=== PATIENT | male | born 1990 | race Caucasian/White ===

== ENCOUNTER 2017-09-15 17:05 | Emergency (ER) | payer BC ==
[2017-09-15 17:17] VITALS: BP 124/81
[2017-09-15] MEDS ORDERED: Ketorolac INJ* 60 MG/2 ML VIAL IM ONE (17:26)
--- NOTE | 2017-09-15 17:26 | UC ---
Back Pain HPI - HPI Summary HPI Summary: 26 yo male presents with low back pain since yesterday. 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 Later that night took ibuprofen with mild relief. This morning took tylenol. Still painful and feels like it is getting more stiff. Denies radiation, numbness, tingling, saddle anesthesia, or loss of bowel/bladder control. - History of Current Complaint Chief Complaint: UCBackPain Stated Complaint: BACK PAIN Time Seen by Provider: 09/15/17 17:18 Hx Obtained From: Patient Onset/Duration: Sudden Onset Timing: Constant Severity Initially: Moderate Severity Currently: Moderate Pain Intensity: 5 Pain Scale Used: 0-10 Numeric - Allergies/Home Medications Allergies/Adverse Reactions: Allergies Allergy/AdvReac Type Severity Reaction Status Date / Time No Known Allergies Allergy Verified 09/15/17 17:17 Home Medications: Home Medications Acetaminophen TAB* [Tylenol TAB*] 1,000 mg PO Q6HR 09/15/17 [History Confirmed 09/15/17] PMH/Surg Hx/FS Hx/Imm Hx - Additional Past Medical History Additional PMH: None Previously Healthy: Yes - Surgical History Surgical History: None - Family History Known Family History: Positive: None - Social History Occupation: Student Lives: With Family Alcohol Use: Occasionally Substance Use Type: None Smoking Status (MU): Never Smoked Tobacco Review of Systems Constitutional: Negative Skin: Negative Respiratory: Negative Cardiovascular: Negative Gastrointestinal: Negative Genitourinary: Negative Neurovascular: Negative Musculoskeletal: Other: - Low back pain Neurological: Negative Psychological: Negative All Other Systems Reviewed And Are Negative: Yes Physical Exam - Summary Physical Exam Summary: GENERAL: NAD. WDWN. No pain distress. SKIN: No rashes, sores, lesions, or open wounds. NECK: Supple. FROM. Nontender. No lymphadenopathy. CHEST: CTAB. No r/r/w. No accessory muscle use. Breathing comfortably and in no distress. CV: RRR. Without m/r/g. Pulses intact. Brisk cap refill. MSK: TTP over lumbar paraspinal muscles. Pain with flexion and extension of spine. Positive SLR b/l. Strength 5/5 B/L LEs including dorsiflexion and plantar flexion. FROM B/L LEs. No edema. NEURO: Alert. CN II-XII grossly intact. Sensations intact B/L LEs L3-S1. PSYCH: Age appropriate behavior. Triage Information Reviewed: Yes Vital Signs: Initial Vital Signs Temp 98.4 F 09/15/17 17:07 Pulse 63 09/15/17 17:07 Resp 16 09/15/17 17:07 BP 124/81 09/15/17 17:07 Pulse Ox 99 09/15/17 17:07 Vital Signs Reviewed: Yes Back Pain Course/Dx - Course Course Of Treatment: Suspect muscle strain/spasm. 60mg toradol IM given in clinic. Rx for flexeril. Exercises provided. F/u prn - Differential Dx/Diagnosis Provider Diagnoses: Low back muscle strain Discharge - Sign-Out/Discharge Documenting (check all that apply): Patient Departure - Discharge Plan Condition: Stable Disposition: HOME Prescriptions: Cyclobenzaprine TAB* [Flexeril 10 MG TAB*] 10 mg PO BID PRN #14 tab PRN Reason: Pain Patient Education Materials: Muscle Strain (DC), Lower Back Exercises (ED) Referrals: No Primary Care Phys,NOPCP [Primary Care Provider] - Additional Instructions: If you develop a fever, shortness of breath, chest pain, new or worsening symptoms - please call your PCP or go to the ED. - Billing Disposition and Condition Condition: STABLE Disposition: Home
== END 2017-09-15 17:45 | disposition home or self-care (01) ==
LOC: UCEAST 17:05
DX: S39.012A Strain of muscle, fascia and tendon of lower back, initial encounter (principal); X50.9XXA Other and unspecified overexertion or strenuous movements or postures, initial encounter; Y93.89 Activity, other specified; Y92.9 Unspecified place or not applicable
CPT/HCPCS: 96372; 99202; G0463; J1885

== ENCOUNTER 2018-03-15 14:04 | Emergency (ER) | payer BC ==
[2018-03-15 14:30] VITALS: BP 136/77
--- NOTE | 2018-03-15 14:47 | UC ---
Throat Pain/Nasal Bran HPI - HPI Summary HPI Summary: Pt presents to stating Thursday he developed some sinus congestion sore throat. Patient states Thursday, low-grade fever to 99.9. Patient states he took Sudafed and Tylenol and felt better. Patient states Thursday he had temperature 101 and again took Sudafed and Tylenol. Better. Patient states today he feels good. Patient had some mild sinus congestion that improved. Patient denies vomiting. Patient states he little nauseated he thought was related to the Sudafed but this resolved. Patient states he thinks is getting better but here because his is in her second trimester and her OB wanted him to get checked. does not have symptoms. Patient did get flu vaccine this year. Patient is not immunocompromise. Patient's medications reviewed this visit. - History of Current Complaint Chief Complaint: UCGeneralIllness Stated Complaint: COUGH, AND SORE THROAT Time Seen by Provider: 03/15/18 14:35 Hx Obtained From: Patient Onset/Duration: Gradual Onset Severity: Mild Pain Intensity: 2 Pain Scale Used: 0-10 Numeric - Allergies/Home Medications Allergies/Adverse Reactions: Allergies Allergy/AdvReac Type Severity Reaction Status Date / Time No Known Allergies Allergy Verified 03/15/18 14:30 Home Medications: Home Medications NK [No Home Medications Reported] 03/15/18 [History Confirmed 03/15/18] PMH/Surg Hx/FS Hx/Imm Hx Previously Healthy: Yes - Surgical History Surgical History: None Surgery Procedure, Year, and Place: denies - Family History Known Family History: Positive: Non-Contributory - Social History 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 EOM intact and full ENT: Hearing grossly normal TM x 2 clear, turbinates inflammed, + PND, mmoist , uvula midline, + exudate, no erythema Neck: Positive: Supple Respiratory: Positive: No respiratory distress, No accessory muscle use + CTA throughout no w/r Cardiovascular: RRR nl s1, s2 no m/r CBT <2 sec abd soft + BS nt/nd no guarding, no distension Musculoskeletal Exam: ENRIQUEZ x 4 without difficulty Strength Intact, ROM Intact Neurological: Positive: Alert, + sensation throughout Psychological: Positive: Normal Response To Family Skin: Positive: no rash, no ecchymosis Triage Information Reviewed: Yes Vital Signs: Initial Vital Signs Temp 98.6 F 03/15/18 14:26 Pulse 71 03/15/18 14:26 Resp 18 03/15/18 14:26 BP 136/77 03/15/18 14:26 Pulse Ox 100 03/15/18 14:26 Throat Pain/Nasal Course/Dx - Course Course Of Treatment: Patient presents to urgent care requesting a test for strep throat as well as influenza. Patient states he had a sore throat congestion on Thursday. Patient states he's been having low-grade fevers for which was taken Tylenol. Patient states he actually feels like he getting better. Patient's is 6 months and OB requested that he get checked for influenza. Patient states he has mild nasal congestion but otherwise no complaints. Eating and drinking well. On exam vital signs are stable. Patient does have some inflamed turbinates with postnasal drip otherwise well-appearing. Discussed with patient secretion precaution, humidified air. Recommend steroid nasal spray the patient declined at this time. Motrin/Tylenol return precautions. - Differential Dx/Diagnosis Provider Diagnosis: URI (upper respiratory infection) Discharge - Sign-Out/Discharge Documenting (check all that apply): Patient Departure All imaging exams completed and their final reports reviewed: No Studies - Discharge Plan Condition: Stable Disposition: HOME Patient Education Materials: Upper Respiratory Infection (ED) Referrals: No Primary Care Phys,NOPCP [Primary Care Provider] - Additional Instructions: As discussed, your rapid influenza A and B were negative as was your rapid strep test. Your symptoms are likely caused by a virus other than influenza A + B - Stay well hydrated. Drink plenty of non-alcoholic, non-caffinated beverages. - Alternate ibuprofen (Advil, Motrin) 600mg and Tylenol 1000mg every 3 hours for pain or fever. Take with food. Do NOT take for more than 4-5 days. - These infections are spread by secretions - do NOT share eating or drinking utensils - clean items you share with other people such as cell phones, computer mouse, TV remote, computer tablets,etc. Once you start to feel better, change your toothbrush and your pillowcase. - get plenty of restful sleep - humidify the air in the room where you sleep - boil water, run a hot steam shower, vaporizer, cups of water by heat register - okay to take over the counter decongestant and cough medication - consider taking a nasal steroid spray if you have ongoing congestion - contact your doctor or return with questions or concerns - Billing Disposition and Condition Condition: STABLE Disposition: Home
== END 2018-03-15 15:10 | disposition home or self-care (01) ==
LOC: UCEAST 14:04
DX: J06.9 Acute upper respiratory infection, unspecified (principal)
CPT/HCPCS: 87651; 99211; G0463

== ENCOUNTER 2018-12-29 19:37 | Emergency (ER) | payer BC, OTHER ==
[2018-12-29 20:02] VITALS: BP 124/78
--- NOTE | 2018-12-29 20:26 | UC ---
Skin Complaint HPI - HPI Summary HPI Summary: 28-year-old male comes in with a chief complaint of a lump on his neck. It's left sided posterior. It's in his skin. He thinks is a sebaceous cyst that is infected. Is of urinary student. It's red tender to palpation. There is pressure. He squeezed earlier and expressed sebum. That's when it started getting red and angry. No history of MRSA. - History of Current Complaint Chief Complaint: UCSkin Time Seen by Provider: 12/29/18 20:19 Stated Complaint: LUMP ON NECK Pain Intensity: 3 - Allergy/Home Medications Allergies/Adverse Reactions: Allergies Allergy/AdvReac Type Severity Reaction Status Date / Time No Known Allergies Allergy Verified 12/29/18 19:58 PMH/Surg Hx/FS Hx/Imm Hx Previously Healthy: Yes - Surgical History Surgical History: None Surgery Procedure, Year, and Place: denies - Family History Known Family History: Positive: None, Non-Contributory - Social History Alcohol Use: Occasionally Substance Use Type: None Smoking Status (MU): Never Smoked Tobacco Review of Systems All Other Systems Reviewed And Are Negative: Yes Constitutional: Positive: Negative Skin: Positive: Other - see hpi Eyes: Positive: Negative ENT: Positive: Negative Respiratory: Positive: Negative Cardiovascular: Positive: Negative Gastrointestinal: Positive: Negative Motor: Positive: Negative Neurovascular: Positive: Negative Musculoskeletal: Positive: Negative Neurological: Positive: Negative Psychological: Positive: Negative Is Patient Immunocompromised?: No Physical Exam Triage Information Reviewed: Yes Appearance: Well-Appearing, No Pain Distress, Well-Nourished Vital Signs: Initial Vital Signs Temp 98.7 F 12/29/18 19:58 Pulse 62 12/29/18 19:58 Resp 18 12/29/18 19:58 BP 124/78 12/29/18 19:58 Pulse Ox 99 12/29/18 19:58 Vital Signs Reviewed: Yes Eye Exam: Normal Eyes: Positive: Conjunctiva Clear Neck: Positive: Other: - Swelling in the skin the left posterior lower neck that 's erythematous and tender to palpation. There is some fluctuance. Respiratory: Positive: No respiratory distress Musculoskeletal: Positive: Strength Intact Neurological: Positive: Alert Psychological: Positive: Age Appropriate Behavior Skin: Positive: Other - Swelling in the skin the left posterior lower neck that' s erythematous and tender to palpation. There is some fluctuance. Course/Dx - Course Course Of Treatment: This appears to be an infected sebaceous cyst. I discussed I&D versus antibiotic treatment. Patient prefers to have antibiotic treatment and follow- up with dermatology and declines I&D at this time. Is to follow-up with dermatology get reevaluated sooner if worse or any questions or concerns. - Diagnoses Provider Diagnosis: Infected sebaceous cyst of skin Discharge ED - Sign-Out/Discharge Documenting (check all that apply): Patient Departure All imaging exams completed and their final reports reviewed: No Studies - Discharge Plan Condition: Stable Disposition: HOME Prescriptions: Cephalexin CAP* [Keflex CAP*] 500 mg PO QID #40 cap Patient Education Materials: Epidermal Inclusion Cysts (ED) Referrals: [facility] [place] [facility] [Outside] Mary Corral [Medical Doctor] - Pankaj Rahman MD [Medical Doctor] - Additional Instructions: FOLLOW UP WITH DERMATOLOGY. GET RECHECKED SOONER IF WORSE; SPREAD OF INFECTION, FEVER, YOU FEEL ILL OR ANY QUESTIONS OR CONCERNS. - Billing Disposition and Condition Condition: STABLE Disposition: Home
== END 2018-12-29 20:37 | disposition home or self-care (01) ==
LOC: UCEAST 19:37
DX: L72.3 Sebaceous cyst (principal)
CPT/HCPCS: 10060; 99212; G0463

== ENCOUNTER 2019-03-28 17:36 | Emergency (ER) | payer OTHER ==
[2019-03-28 18:31] VITALS: BP 108/68
--- NOTE | 2019-03-28 18:36 | UC ---
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 He has vomited about 6-8 times, twice with blood flecks. He had 2 light beers yesterday, but ate higher fatty foods like mac and cheese which he has been avoiding. Took famotidine earlier today. He has tolerated about a liter of fluids since 3pm without further vomiting. - History of Current Complaint Chief Complaint: UCGI Stated Complaint: VOMITING Time Seen by Provider: 03/28/19 18:30 Hx Obtained From: Patient Onset/Duration: Sudden Onset Severity Initially: Moderate Pain Intensity: 3 Location: Epigastric Radiates: No Character: Sharp Aggravating Factor(s): Movement Associated Signs And Symptoms: Positive: Negative - Allergies/Home Medications Allergies/Adverse Reactions: Allergies Allergy/AdvReac Type Severity Reaction Status Date / Time No Known Allergies Allergy Verified 03/28/19 18:31 Home Medications: Home Medications Famotidine TAB* [Pepcid 20 MG TAB*] 20 mg PO ONCE 03/28/19 [History Confirmed ] PMH/Surg Hx/FS Hx/Imm Hx Previously Healthy: Yes - Surgical History Surgical History: None Surgery Procedure, Year, and Place: denies - Family History Known Family History: Positive: Other - mother had early gallbladder disease. 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 Alcohol Use: Weekly Substance Use Type: None Smoking Status (MU): Never Smoked Tobacco Review of Systems All Other Systems Reviewed And Are Negative: Yes Constitutional: Positive: Fever - earlier today was at 101, Fatigue Eyes: Positive: Negative ENT: Positive: Negative Respiratory: Positive: Negative Cardiovascular: Positive: Negative Gastrointestinal: Positive: Negative Genitourinary: Positive: Negative Motor: Positive: Negative Musculoskeletal: Positive: Myalgia Neurological: Positive: Headache Is Patient Immunocompromised?: No Physical Exam Triage Information Reviewed: Yes Appearance: Ill-Appearing - looks mildly unwell Vital Signs: Initial Vital Signs Temp 98.9 F 03/28/19 18:26 Pulse 110 03/28/19 18:26 Resp 16 03/28/19 18:26 BP 108/68 03/28/19 18:26 Pulse Ox 99 03/28/19 18:26 Eye Exam: Normal ENT: Positive: Pharynx normal, Pharyngeal erythema Neck: Positive: Supple, Nontender, No Lymphadenopathy Respiratory: Positive: Lungs clear, Normal breath sounds Cardiovascular: Positive: RRR, No Murmur Abdomen Description: Positive: No Organomegaly, Soft, Other: - tenderness in epigastrium without guarding or rebound Bowel Sounds: Positive: Present Musculoskeletal Exam: Normal Neurological Exam: Normal Psychological Exam: Normal Skin Exam: Normal Diagnostics - Laboratory Lab Results: rapid flu negative. Re-Evaluation - Re-Evaluation First Eval Re-Evaluation Time: 19:20 - marked decrease in nausea. Change: Improved Abd Pain Male Course/Dx - Course Course Of Treatment: continue zofran, omeprazole given, discussed advancing diet. Follow up if pain persists, discussed possible need for gallbladder USS. - Differential Dx/Clinical Impression Differential Diagnosis/HQI/PQRI: Gall Bladder Disease, Pancreatitis, Other - gastritis Provider Diagnosis: Gastritis Discharge ED - Sign-Out/Discharge Documenting (check all that apply): Patient Departure All imaging exams completed and their final reports reviewed: No Studies - Discharge Plan Condition: Stable Disposition: HOME Patient Education Materials: Gastritis (ED) Forms: *Work Release Referrals: No Primary Care Phys,NOPCP [Primary Care Provider] - Additional Instructions: Take dose of omeprazole tonight before a light intake of food such as toast or soup. Use ondansetron as needed for nausea. If you have continued pain in the right side, follow up with your primary doctor about a possible gallblader ultrasound scan. Advance diet slowly/. - Billing Disposition and Condition Condition: STABLE Disposition: Home
[2019-03-28] MEDS ORDERED: Ondansetron ODT TAB* 4 MG PO ONE ×2 (18:54→19:25)
[2019-03-28 19:13] LABS: Influenza A Molecular Negative (Negative); Influenza B Molecular Negative (Negative)
[2019-03-28] MEDS ORDERED: Omeprazole CAP (NF) 20 MG CAP.DR PO ONE (19:26)
[2019-03-28] MEDS ORDERED: Pantoprazole TAB * 40 MG TAB PO ONE (19:30)
== END 2019-03-28 19:41 | disposition home or self-care (01) ==
LOC: UCEAST 17:36
DX: K29.70 Gastritis, unspecified, without bleeding (principal); R53.83 Other fatigue
CPT/HCPCS: 99213; A9270-GY; G0463